=== PATIENT | male | born 2000 | race Two or more races ===

== ENCOUNTER 2025-08-01 15:47 | Emergency (ER) | payer OTHER ==
[~2025-08-01] VITALS: Ht 180.3 cm; Wt 93.9 kg
[2025-08-01] MEDS ORDERED: PENICILLIN G BENZATHINE 2,400,000 UNIT/4 ML SYRINGE IM ONE (19:10)
[2025-08-01 19:18] VITALS: BP 138/79; TEMP 99.3; O2SAT 97
[2025-08-01] MEDS ORDERED: PENI500T PO (19:38)
[2025-08-01] MEDS: PENICILLIN V POTASSIUM 500 MG TAB PO ONE (20:01)
[2025-08-01] MEDS: ACETAMINOPHEN 500 MG TAB PO ONE (20:01)
== END 2025-08-01 20:17 | disposition home or self-care (01) ==
LOC: M ED 15:47
DX: J02.0 Streptococcal pharyngitis (principal); J20.6 Acute bronchitis due to rhinovirus; Z79.2 Long term (current) use of antibiotics

== ENCOUNTER → 2025-10-07 | Outpatient (CLI) | payer OTHER ==
[~2025-10-07] MED LIST: PENI500T PO
== END ==
LOC: M RAD 09:33
PROVIDERS: ATTEND Physician Assistant
DX: M54.50 Low back pain, unspecified (principal)